=== PATIENT | female | born 1955 | race Caucasian/White ===

== ENCOUNTER 2016-10-20 10:56 | Outpatient (CLI) | payer OTHER ==
[2016-10-20 12:02] LABS: Anion Gap 15 mmol/L (10-20); BUN (Urea Nitrogen) 18 mg/dL (9.8-20.1); Calc. Creatinine Clearance 0 mL/min (70-130); Calcium 9.6 mg/dL (7.8-10.44); Carbon Dioxide 26 mmol/L (22-29); Chloride 107 mmol/L (98-107); Estimated GFR-MDRD 68; Glucose 106 mg/dL (70-105); Potassium 4.5 mmol/L (3.5-5.1); Sodium 143 mmol/L (136-145)
== END 2016-10-20 10:57 | disposition home or self-care (01) ==
LOC: HPCALD 10:56
PROVIDERS: ATTEND Physician Assistant
DX: R73.02 Impaired glucose tolerance (oral) (principal)
CPT/HCPCS: 36415; 80048

== ENCOUNTER 2017-08-17 14:09 | Outpatient (CLI) | payer BC ==
--- NOTE | 2017-08-17 17:58 | RAD ---
RIGHT KNEE FOUR VIEWS: 08/17/17 No acute fracture or large joint effusion was seen. Some minor degenerative changes are present. The joint space is preserved. There is some very minor irregularity along the articular surface of the me dial femoral condyle that is doubtless longstanding. IMPRESSION: No definite acute findings. MRI would be useful looking for internal derangements. POS: HOME
== END 2017-08-17 14:10 | disposition home or self-care (01) ==
LOC: BURRAD 14:09
PROVIDERS: ATTEND Physician Assistant
DX: M25.461 Effusion, right knee (principal)

== ENCOUNTER 2017-09-02 19:47 | Emergency (ER) | payer BC ==
[2017-09-02] MEDS ORDERED: Bicillin CR 1.2 MILL UNITS/2 ML SYRINGE ONE (20:19)
[2017-09-02] MEDS ORDERED: Dexamethasone 4 mg/ml Vial ONE (20:31)
== END 2017-09-02 20:55 | disposition home or self-care (01) ==
LOC: BURERS 19:47
DX: J02.9 Acute pharyngitis, unspecified (principal)
CPT/HCPCS: 96372; J0558; J1100

== ENCOUNTER 2017-11-29 15:14 | Outpatient (CLI) | payer BC ==
--- NOTE | 2017-11-30 09:11 | RAD ---
LEFT FOOT THREE VIEWS: 11/29/17 No fracture or periosteal reaction was seen. The joints were unremarkable. On the lateral view only, there is a small linear sliver of bone on the dorsum of the navicular near the talonavicular joint. This is probably a tiny cortical avulsion, but the age is indeterminate. IMPRESSION: Probable small cortical avulsion from the dorsum of the navicular, but it may not be acute. Correlate with site of pain. Code T POS: HOME
--- NOTE | 2017-11-30 09:12 | RAD ---
LEFT ANKLE THREE VIEWS: 11/29/17 No fracture was seen. Some mild soft tissue swelling is present around the ankle. The articular surfa rickie are smooth. IMPRESSION: No acute bony finding. POS: HOME
== END 2017-11-29 15:15 | disposition home or self-care (01) ==
LOC: BURRAD 15:14
PROVIDERS: ATTEND Family Medicine
DX: M25.572 Pain in left ankle and joints of left foot (principal); M79.672 Pain in left foot